=== PATIENT | female | born 1935 | race Caucasian/White ===

== ENCOUNTER 2018-08-04 13:25 | Outpatient (CLI) | payer MEDICARE, OTHER | END 2018-08-04 13:26 | disposition home or self-care (01) | LOC: DI.N 13:25 | DX: Z12.31 Encounter for screening mammogram for malignant neoplasm of breast (principal) | CPT/HCPCS: 77067 ==

== ENCOUNTER 2019-05-29 09:58 | Outpatient (CLI) | payer MEDICARE | END 2019-05-29 09:59 | disposition critical access hospital (66) | LOC: EMS 09:58 | PROVIDERS: ATTEND Surgery | DX: S01.81XA Laceration without foreign body of other part of head, initial encounter (principal); W01.0XXA Fall on same level from slipping, tripping and stumbling without subsequent striking against object, initial encounter; Y93.K1 Activity, walking an animal; Y92.481 Parking lot as the place of occurrence of the external cause | CPT/HCPCS: A0425; A0429 ==

== ENCOUNTER 2019-05-29 10:15 | Emergency (ER) | payer MEDICARE, OTHER ==
[2019-05-29] MEDS ORDERED: TETANUS/DIPHTHERIA/PERTUSSIS 0.5 ML SYRINGE IM ONE (10:53)
--- NOTE | 2019-05-29 11:20 | XRAY Report ---
Reason: fall with wrist injury Procedure Date: 05/29/2019 Accession Number: [id number] / [id number] Procedure: XR - Wrist 3 View LT CPT Code: FULL RESULT: EXAM: LEFT WRIST RADIOGRAPHY EXAM DATE: 05/29/2019 11:06 AM. CLINICAL HISTORY: Fall with wrist injury. COMPARISON: None. TECHNIQUE: 3 views. FINDINGS: Bones: Normal. No fractures or bone lesions. Joints: Mild narrowing of the STT joint. No dislocations or subluxations. Soft Tissues: Normal. No soft tissue swelling. IMPRESSION: No acute fracture appreciated. RADIA
--- NOTE | 2019-05-29 13:13 | CT Report ---
Reason: fall with right periorbital injury; some neck pain Procedure Date: 05/29/2019 Accession Number: [id number] / [id number] Procedure: CT - HEAD WO CPT Code: FULL RESULT: EXAM: CT HEAD EXAM DATE: 05/29/2019 11:23 AM. CLINICAL HISTORY: Fall with right periorbital injury; some neck pain. COMPARISON: CT orbits and cervical spine performed concurrently. TECHNIQUE: Multiaxial CT images were obtained from the foramen magnum to the vertex. Reformats: Sagittal and coronal. IV contrast: None. In accordance with CT protocol optimization, one or more of the following dose reduction techniques were utilized for this exam: automated exposure control, adjustment of mA and/or KV based on patient size, or use of iterative reconstructive technique. FINDINGS: Parenchyma: Minimal patchy hypodensity in bilateral cerebral white matter consistent with chronic small vessel ischemic change. No high density lesions. No mass-effect. Hogue-white differentiation is intact. Extraaxial Spaces: Normal for age. No subdural or epidural collections identified. Ventricles: Normal in size and position. Sinuses and Orbits: Bilateral cataract surgery. Minimal lateral right periorbital soft tissue swelling. Minimal right maxillary sinus mucosal thickening. Otherwise unremarkable. Bones: No evidence of fracture or calvarial defect. Other: None. IMPRESSION: 1. No intracranial hemorrhage or skull fracture. 2. Minimal chronic small vessel ischemic change in the bilateral cerebral white matter. RADIA
--- NOTE | 2019-05-29 13:13 | CT Report ---
Reason: fall with right periorbital injury; some neck pain Procedure Date: 05/29/2019 Accession Number: [id number] / [id number] Procedure: CT - ORBITS WO CPT Code: FULL RESULT: EXAM: CT MAXILLOFACIAL WITHOUT CONTRAST EXAM DATE: 05/29/2019 11:23 AM. CLINICAL HISTORY: Fall with right periorbital injury; some neck pain. COMPARISONS: CT head and cervical spine performed concurrently. TECHNIQUE: Thin-section axial images were acquired of the orbits without contrast. Post-processing: Coronal and sagittal reformats. Other: None. In accordance with CT protocol optimization, one or more of the following dose reduction techniques were utilized for this exam: automated exposure control, adjustment of mA and/or KV based on patient size, or use of iterative reconstructive technique. FINDINGS: Soft Tissue: Mild lateral right periorbital soft tissue swelling. Orbits: Bilateral cataract surgery. Globes symmetric. No retrobulbar hematoma or gas. Bones: No fracture or bone lesion. Right orbital peña and zygomatic arch are intact. Temporomandibular Joints: The temporomandibular joints are symmetric and normally located. Sinuses: Mild mucosal thickening dependently in the right maxillary sinus. Otherwise, the visualized paranasal sinuses are clear as are mastoids and middle ears. Other: None. IMPRESSION: 1. Lateral right periorbital soft tissue swelling. No orbital hematoma or gas. 2. No fracture of visualized facial bones. Right bony orbit is intact. 3. Mild right maxillary sinus mucosal thickening consistent with sinusitis. RADIA
--- NOTE | 2019-05-29 13:18 | CT Report ---
Reason: fall with right periorbital injury; some neck pain Procedure Date: 05/29/2019 Accession Number: [id number] / [id number] Procedure: CT - CERVICAL SPINE WO CPT Code: FULL RESULT: EXAM: CT CERVICAL SPINE WITHOUT CONTRAST DATE: 05/29/2019 11:23 AM. HISTORY: Fall with right periorbital injury; some neck pain. COMPARISONS: None. TECHNIQUE: Thin-section axial images were acquired of the cervical spine without contrast. Post-processing: Coronal and sagittal reformats. Other: None. In accordance with CT protocol optimization, one or more of the following dose reduction techniques were utilized for this exam: automated exposure control, adjustment of mA and/or KV based on patient size, or use of iterative reconstructive technique. FINDINGS: Alignment: No scoliosis or spondylolisthesis. Bones: No fracture or bone lesion. Interspace Levels/Facets: C1-C2: Severe degenerative changes are present. C2-C3: There is mild disk height loss. There are moderate bilateral degenerative facet changes. C3-C4: There is mild disk height loss and endplate osteophyte formation. There are moderate to severe bilateral degenerative facet changes. C4-C5: There is mild disk height loss and endplate osteophyte formation. There are severe bilateral degenerative facet changes. There is mild narrowing of the right neural foramen. C5-C6: There are severe degenerative disk changes. There is mild central canal narrowing. There are mild bilateral degenerative facet changes. There is moderate to severe narrowing of the bilateral neural foramina. C6-C7: There are severe degenerative disk changes. There is mild narrowing of the central canal. There are mild bilateral degenerative facet changes. There is moderate narrowing of the bilateral neuroforamina. C7-T1: There is mild disk loss and endplate osteophyte formation. There are mild degenerative changes of the bilateral neuroforamina. Musculature: Normal. No fatty atrophy. Other: There is atherosclerotic calcification of the bilateral carotid bulbs. The paravertebral and prevertebral soft tissues are otherwise unremarkable. There is minimal peripheral scarring at the right lung apex. IMPRESSION: 1. No fracture or other acute osseous abnormality of the cervical spine identified. 2. Multilevel moderate to severe degenerative changes of the cervical spine. There is mild central canal narrowing at the C5-C6 and C6-C7 levels. There is moderate to severe bilateral neuroforaminal narrowing at the C5-C6 and C6-C7 levels. RADIA
--- NOTE | 2019-05-29 13:25 | ED Physician Documentation ---
PD HPI HEAD INJURY - Stated complaint Stated Complaint: GLF - Chief complaint Chief Complaint: Trauma Hd/Nk - History obtained from History obtained from: Patient - History of Present Illness Mechanism of head injury: Fell (she says she tripped on concrete parking curb and fell forward. Struck right periorbital area with laceration to right lateral eyebrow.) Where head injury occurred: Other ([facility]) Timing - onset: Today Location of injury: Right, Front (periorbital right eyebrow, with some bruising already at eyelid. Lac at lateral eyebrow.) Quality of pain: Throbbing Associated symptoms: No: LOC, AMS, Nausea / vomiting Symptoms worsen with: Palpation Contributing factors: No: Anticoagulated Similar symptoms before: Has not had sx before Recently seen: Not recently seen Review of Systems Constitutional: denies: Fever, Chills Eyes: denies: Loss of vision, Decreased vision, Irritation Nose: denies: Rhinorrhea / runny nose, Congestion Throat: denies: Sore throat Cardiac: denies: Chest pain / pressure, Palpitations Respiratory: denies: Dyspnea, Cough GI: denies: Abdominal Pain, Nausea, Vomiting, Diarrhea Skin: reports: Laceration (s) Musculoskeletal: reports: Extremity pain (left wrist). denies: Neck pain, Back pain Neurologic: denies: Focal weakness, Numbness, Altered mental status, Headache (just hurting right periorbital area) PD PAST MEDICAL HISTORY - Past Medical History Cardiovascular: None Respiratory: None Neuro: None Endocrine/Autoimmune: None - Present Medications Home Medications: Ambulatory Orders Medication Instructions Recorded Confirmed Aspirin 81 mg PO 05/29/19 Garlic 1 each PO 05/29/19 Metoprolol Tartrate 25 mg 05/29/19 Pregabalin [Lyrica] 50 mg PO BID 05/29/19 05/29/19 - Allergies Allergies/Adverse Reactions: Allergies Allergy/AdvReac Type Severity Reaction Status Date / Time cephalexin [From Keflex] Allergy Mild Hives Verified 05/29/19 10:34 Penicillins Allergy Mild Hives Verified 05/29/19 10:34 Opioids - Morphine Analogues AdvReac Mild Nausea Verified 05/29/19 10:35 PD ED PE NORMAL - Vitals Vital signs reviewed: Yes - General General: Alert and oriented X 3, No acute distress - HEENT HEENT: PERRL, EOMI, Other (right lateral eyebrow with 1 cm lac and no FB nor activ e bleeding.) - Neck Neck: Supple, no meningeal sign, No bony TTP - Cardiac Cardiac: RRR, No murmur - Respiratory Respiratory: Clear bilaterally - Abdomen Abdomen: Soft, Non tender, Non distended - Back Back: No CVA TTP, No spinal TTP - Derm Derm: Normal color, Warm and dry - Extremities Extremities: Normal ROM s pain, No edema, Other (left wrist with some tenderness mid dorsal wrist. No noted deformity. Good hair baler and sensation. Just some pain at wrist with it. ) - Neuro Neuro: Alert and oriented X 3, No motor deficit, Normal speech Results - Vitals Vitals: Vital Signs - 24 hr 05/29/19 05/29/19 05/29/19 10:18 10:57 13:28 Temperature 98.3 C H 36.9 C Heart Rate 70 74 76 Respiratory 18 20 18 Rate Blood Pressure 138/69 H 147/66 H 143/64 H O2 Saturation 95 100 99 Oxygen O2 Source Room air - Rads (name of study) left wrist Radiology: Prelim report reviewed (no fractures), See rad report maxiofasc Radiology: Prelim report reviewed (no fractures nor bleeding/swelling.), See rad report Procedures - Laceration (location) right lateral eyebrow Length in cm: 1 Wound type: Linear Neurovascular status: Sensory intact, Motor intact Anesthesia: Lidocaine 1% with epi Wound Preparation: Irrigated copiously NS, Wound explored, To the base. No: FB identified Skin layer closure: Nylon, Running, Size #-0 - enter number (6) Other: Patient tolerated well, No complications, Neurovascular intact, Dressing applied, Tetanus UTD Complexity: Simple Departure - Departure Disposition: 01 Home, Self Care Clinical Impression: Fall from slip, trip, or stumble Qualifiers: Encounter type: initial encounter Qualified Code(s): W01.0XXA - Fall on same level from slipping, tripping and stumbling without subsequent striking against object, initial encounter Laceration of periorbital area Qualifiers: Encounter type: initial encounter Qualified Code(s): S01.81XA - Laceration without foreign body of other part of head, initial encounter Facial contusion Qualifiers: Encounter type: initial encounter Qualified Code(s): S00.83XA - Contusion of other part of head, initial encounter Condition: Stable Record reviewed to determine appropriate education?: Yes Instructions: ED Laceration Facial Sutr Tape Follow-Up: ZO ESCOBAR MD [Provider Admit Priv/Credential] - Comments: Tylenol or ibuprofen if needed for pains. There are no fractures seen on the face head or neck. There is no bleeding noted within the head area. Looks like you are just bruised on the outside with a laceration. It is okay to wash and shower. Clean off the wound twice a day with soap and water, or peroxide and water. Apply some antibiotic ointment to it to keep it moist. Also to watch for signs of infection such as purulence, redness or increasing pain. Return to your primary care or the ER at the specified time for suture removal. Suture removal 7 or 8 days. Discharge Date/Time: 05/29/19 13:36
[2019-05-29 13:30] VITALS: BP 143/64
== END 2019-05-29 13:36 | disposition home or self-care (01) ==
LOC: EDUNIT# → ED 10:15
DX: S01.111A Laceration without foreign body of right eyelid and periocular area, initial encounter (principal); S00.83XA Contusion of other part of head, initial encounter; M25.532 Pain in left wrist; W01.0XXA Fall on same level from slipping, tripping and stumbling without subsequent striking against object, initial encounter; Y93.K1 Activity, walking an animal; Y92.481 Parking lot as the place of occurrence of the external cause; Z23 Encounter for immunization; M50.322 Other cervical disc degeneration at C5-C6 level; M48.02 Spinal stenosis, cervical region
CPT/HCPCS: 12011; 70450; 70480; 72125; 90471

== ENCOUNTER 2019-06-02 13:37 | Outpatient (CLI) | payer MEDICARE ==
--- NOTE | 2019-06-04 00:56 | XRAY Report ---
Reason: RIB PAIN,RIGHT SIDED Procedure Date: 06/02/2019 Accession Number: [id number] / [id number] Procedure: XRN - Ribs w/PA Chest RT CPT Code: FULL RESULT: EXAM: RIGHT RIB RADIOGRAPHY EXAM DATE: 06/02/2019 02:01 PM. CLINICAL HISTORY: RIB PAIN,RIGHT SIDED. COMPARISON: CERVICAL SPINE W/O 05/29/2019 11:16 AM. TECHNIQUE: 1 view of the chest and 2 views of the ribs. FINDINGS: Bones: No acute rib fractures or rib lesions are seen. Demineralized bones. Lungs: No consolidation, pleural effusion or pneumothorax. Right breast shadow blocks visualization. Right apex pleural-based nodular opacification, appeared to be scarring on the prior CT cervical spine but this was not completely imaged. Six-month follow-up chest x-ray could be obtained to confirm stability. Mediastinum: Borderline cardiomegaly. IMPRESSION: Borderline cardiomegaly. No acute rib fractures are seen. Right breast shadow blocks visualization. Right apex pleural-based nodular opacification, appeared to be scarring on the prior CT cervical spine but this was not completely imaged. Six-month follow-up chest x-ray could be obtained to confirm stability. RADIA
== END 2019-06-02 13:38 | disposition home or self-care (01) ==
LOC: DI.N 13:37
PROVIDERS: ATTEND Family Medicine
DX: R07.81 Pleurodynia (principal); I51.7 Cardiomegaly

== ENCOUNTER 2019-06-04 11:26 | Emergency (ER) | payer MEDICARE ==
[2019-06-04 11:40] VITALS: BP 113/47
--- NOTE | 2019-06-04 12:14 | ED Physician Documentation ---
PD HPI WOUND RECHECK - Stated complaint Stated Complaint: SUTURE REMOVAL - Chief complaint Chief Complaint: Wound - Histroy obtained from History obtained from: Patient - History of Present Illness Location: Other (She is here to have her sutures out, as instructed. She has a sutured wound on the right eyebrow. She has not had any issues except for mild itching.) Review of Systems Constitutional: reports: Reviewed and negative Nose: reports: Reviewed and negative Throat: reports: Reviewed and negative PD PAST MEDICAL HISTORY - Past Medical History Cardiovascular: None Respiratory: None Neuro: None Endocrine/Autoimmune: None - Present Medications Home Medications: Ambulatory Orders Medication Instructions Recorded Confirmed Aspirin 81 mg PO 05/29/19 Garlic 1 each PO 05/29/19 Metoprolol Tartrate 25 mg 05/29/19 Pregabalin [Lyrica] 50 mg PO BID 05/29/19 05/29/19 - Allergies Allergies/Adverse Reactions: Allergies Allergy/AdvReac Type Severity Reaction Status Date / Time cephalexin [From Keflex] Allergy Mild Hives Verified 06/04/19 11:37 Penicillins Allergy Mild Hives Verified 06/04/19 11:37 Opioids - Morphine Analogues AdvReac Mild Nausea Verified 06/04/19 11:37 PD ED PE NORMAL - Vitals Vital signs reviewed: Yes - General General: Alert and oriented X 3, No acute distress - HEENT HEENT: PERRL, EOMI, Other (1cm sutured wound R eyebrow, CDI; sutures removed during exam) - Neck Neck: Supple, no meningeal sign, No bony TTP - Neuro Neuro: Alert and oriented X 3, Normal speech Results - Vitals Vitals: Vital Signs - 24 hr 06/04/19 11:37 Temperature 37 C Heart Rate 68 Respiratory 15 Rate Blood Pressure 113/47 L O2 Saturation 100 Oxygen O2 Source Room air Departure - Departure Disposition: 01 Home, Self Care Clinical Impression: Visit for suture removal Condition: Good Discharge Date/Time: 06/04/19 12:13
== END 2019-06-04 12:13 | disposition home or self-care (01) ==
LOC: ED 11:26
DX: S01.111D Laceration without foreign body of right eyelid and periocular area, subsequent encounter (principal); X58.XXXD Exposure to other specified factors, subsequent encounter; Z79.82 Long term (current) use of aspirin
CPT/HCPCS: 99281

== ENCOUNTER 2019-08-25 13:37 | Outpatient (CLI) | payer MEDICARE ==
--- NOTE | 2019-08-30 12:07 | Mammography Report ---
Reason: ROUTINE MAMMO Procedure Date: 08/25/2019 Accession Number: [id number] / [id number] Procedure: MGN - Screening Mammo Dig w/Implants CPT Code: Final Report FULL RESULT: EXAM: Screening Mammo Dig w/Implants DATE: 08/25/2019 2:10 PM CLINICAL HISTORY: The patient is an asymptomatic 83-year-old female. Prior left breast implant removal and benign right breast biopsy. No reported personal nor family history of breast cancer. TECHNIQUE: (B) - Bilateral CC and MLO views were obtained. COMPARISON: 08/04/2018 PARENCHYMAL PATTERN: (D) - The breasts demonstrate heterogeneously dense fibroglandular parenchyma bilaterally. FINDINGS: Post surgical deformity is unchanged in both breasts. Benign dystrophic calcifications again noted. Stable indwelling right subpectoral silicone implant. There are no suspicious masses, calcifications, or areas of distortion. IMPRESSION: Benign findings. BI-RADS category 2. RECOMMENDATION: (ANNUAL) - Recommend routine annual screening mammography. BI-RADS CATEGORY: (2) - Benign Findings. STANDARD QUALIFYING STATEMENTS: A negative or benign imaging report should not preclude biopsy if clinically suspicious findings are present. Dense breasts may obscure an underlying neoplasm.
== END 2019-08-25 13:38 | disposition home or self-care (01) ==
LOC: DI.N 13:37
DX: Z12.31 Encounter for screening mammogram for malignant neoplasm of breast (principal); Z98.82 Breast implant status
CPT/HCPCS: 77067

== ENCOUNTER 2019-09-21 08:00 | Outpatient (CLI) | payer MEDICARE ==
[2019-09-21 12:05] LABS: EOSINOPHILS % (AUTO) 1.2 %; HGB - HEMOGLOBIN 9.9 g/dL (12.0-16.0); LYMPHOCYTES # (AUTO) 0.8 10^3/uL (1.5-3.5); LYMPHOCYTES % (AUTO) 30.5 %; MEAN CORPUSCULAR HEMOGLOBIN 36.5 pg (27.0-31.0); MEAN CORPUSCULAR HGB CONC 32.1 g/dL (32.0-36.0); MEAN CORPUSCULAR VOLUME 113.7 fL (81.0-99.0); MEAN PLATELET VOLUME 11.3 fL (7.9-10.8); MONOCYTES # (AUTO) 0.3 10^3/uL (0.0-1.0); MONOCYTES % (AUTO) 11.6 %; NEUTROPHILS # (AUTO) 1.5 10^3/uL (1.5-6.6); NEUTROPHILS % (AUTO) 56.3 %; PLT - PLATELET COUNT 302 10^3/uL (130-450); RED BLOOD COUNT 2.71 10^6/uL (4.20-5.40); RED CELL DISTRIBUTION WIDTH 11.8 % (12.0-15.0); WHITE BLOOD COUNT 2.6 x10^3/uL (4.8-10.8)
[2019-09-21 12:33] LABS: ALBUMIN 4.5 g/dL (3.2-5.5); ALBUMIN/GLOBULIN RATIO 1.5 (1.0-2.2); ALKALINE PHOSPHATASE 75 IU/L (42-121); ALT ALANINE AMINOTRANSFERASE 17 IU/L (10-60); AST ASPARTATE AMINOTRANSFERASE 23 IU/L (10-42); BILIRUBIN,TOTAL 2.6 mg/dL (0.2-1.0); BUN - BLOOD UREA NITROGEN 19 mg/dL (6-20); CALCIUM 9.2 mg/dL (8.5-10.3); CARBON DIOXIDE - CO2 28 mmol/L (21-32); CHLORIDE 101 mmol/L (101-111); CHOL/HDL RATIO 2.9 (<4.4); CHOLESTEROL 147 mg/dL; CREATININE 0.7 mg/dL (0.4-1.0); GFR - MDRD 80 (>89); GLUCOSE 100 mg/dL (70-100); HDL CHOLESTEROL 51 mg/dL; LDL CHOLESTEROL,CALCULATED 80 mg/dL; LDL/HDL RATIO 1.6 (<4.4); SODIUM 141 mmol/L (135-145); TOTAL PROTEIN 7.5 g/dL (6.7-8.2); VLDL CHOLESTEROL 16 mg/dL
== END 2019-09-21 23:59 | disposition home or self-care (01) ==
LOC: LAB.N 08:00
PROVIDERS: ATTEND Family Medicine
DX: D46.9 Myelodysplastic syndrome, unspecified (principal); I34.1 Nonrheumatic mitral (valve) prolapse
CPT/HCPCS: 36415; 80053; 80061; 83721; 84443; 85025

== ENCOUNTER 2019-10-24 12:54 | Outpatient (CLI) | payer MEDICARE ==
--- NOTE | 2019-10-24 15:20 | XRAY Report ---
Reason: LEFT HIP JOINT PAIN Procedure Date: 10/24/2019 Accession Number: [id number] / [id number] Procedure: XRN - Hip w/Pelvis 2-3V LT CPT Code: Final Report FULL RESULT: EXAM: LEFT HIP RADIOGRAPHY EXAM DATE: 10/24/2019 01:16 PM. CLINICAL HISTORY: LEFT HIP JOINT PAIN. COMPARISON: None. TECHNIQUE: 2 views. FINDINGS: Bones: Normal. No fractures or bone lesion. Joints: Mild left hip joint space narrowing. Mild bilateral hip osteophyte formation. Pubic symphysis and sacroiliac joints are unremarkable. Mild to moderate multilevel lower lumbar degenerative disk disease. Soft Tissues: Normal. No soft tissue swelling. 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 RADIA
== END 2019-10-24 12:55 | disposition home or self-care (01) ==
LOC: DI.N 12:54
PROVIDERS: ATTEND Family Medicine
DX: M16.0 Bilateral primary osteoarthritis of hip (principal)

== ENCOUNTER 2020-06-18 12:53 | Emergency (ER) | payer MEDICARE ==
[2020-06-18] MEDS ORDERED: CHERRY SYRUP 10 ML UDC PO ONE (14:13)
[2020-06-18] MEDS ORDERED: DEXAMETHASONE 10 MG/ML VIAL PO STA (14:13)
[2020-06-18] MEDS ORDERED: KETOROLAC 60 MG/2 ML VIAL IM STA ×2 (14:13→14:33)
--- NOTE | 2020-06-18 14:58 | XRAY Report ---
PROCEDURE: ThoracoLumbar 2 View INDICATIONS: thoracic and upper lumbar pain TECHNIQUE: 5 views acquired of the thoracolumbar spine. COMPARISON: AP pelvis and left hip radiographs 10/24/2019.. FINDINGS: Bones: Prior vertebroplasty at L1 and L3. Levoscoliosis. Bones appear osteopenic. Multilevel degener ative change. No acute fractures identified. No dislocations. Visualized inferior ribs appear intact . No suspicious bony lesions. Bilateral hip DJD partially visualized. Soft tissues: No suspicious soft tissue calcifications. Sutures or staple line posterior lumbar spin e soft tissues. IMPRESSION: No acute fracture identified. Prior vertebroplasty at L1 and L3. Bones appear osteopenic. Reviewed by: Galileo Nicole MD on 06/18/2020 2:57 PM PDT Approved by: Galileo Nicole MD on 06/18/2020 2:57 PM PDT Station ID: [id number]
--- NOTE | 2020-06-18 15:08 | ED Physician Documentation ---
PD HPI BACK PAIN - Stated complaint Stated Complaint: BACK PX - Chief complaint Chief Complaint: Back Pain - History obtained from History obtained from: Patient - History of Present Illness Timing - onset: How many days ago (3) Timing - duration: Days (3) Timing - details: Abrupt onset, Still present Location: Upper Quality: Pain, Spasm, Sharp, Similar to prior episodes Associated symptoms: No: Fever, Weakness, Numbness, Incontinent of urine, Unable to urinate, Hematuria, Incontinent of stool Improves with: Rest, Position Worsened by: Movement Contributing factors: Lifting, Twisting Similar symptoms before: Diagnosis (compression fracture) Recently seen: Not recently seen - Additional information Additional information: 84-year-old female reports that she sat down on her couch and had sudden onset of pain between her shoulder blades bilaterally on the paraspinous muscles. She has had pain in this area now for the past 3 days and it is worsening she has come to the emergency department now for treatment. She has had prior compression fracture and had kyphoplasty done. She does not want to have kyphoplasty done again. She did have good result with it. Review of Systems Constitutional: denies: Fever Eyes: denies: Decreased vision Ears: denies: Ear pain Nose: denies: Congestion Throat: denies: Sore throat Cardiac: denies: Chest pain / pressure, Palpitations Respiratory: denies: Dyspnea, Cough GI: denies: Vomiting PD PAST MEDICAL HISTORY - Past Medical History Past Medical History: No Cardiovascular: None Respiratory: None Neuro: None Endocrine/Autoimmune: None GI: None CELLULAR BIOLOGIST: None : None Psych: None Musculoskeletal: Osteopenia Derm: None - Past Surgical History General: Appendectomy Ortho: Knee replacement /CELLULAR BIOLOGIST: Hysterectomy HEENT: Tonsil/Adenoidectomy - Present Medications Home Medications: Ambulatory Orders Medication Instructions Recorded Confirmed Aspirin 81 mg PO DAILY 05/29/19 05/02/20 Garlic 1 each PO DAILY 05/29/19 05/02/20 Metoprolol Tartrate 25 mg PO DAILY 05/29/19 05/02/20 Pregabalin [Lyrica] 50 mg PO BID 05/29/19 05/02/20 Carisoprodol [Soma] 350 mg PO PRN PRN 05/02/20 05/02/20 Lecithin, Soy [Lecithin] 1,200 mg PO DAILY 05/02/20 05/02/20 Metoprolol Succinate [Toprol Xl] 25 mg PO DAILY 05/02/20 05/02/20 Pregabalin [Lyrica] 50 mg PO BID 05/02/20 05/02/20 Cyclobenzaprine [Flexeril] 10 mg PO TID PRN #20 tablet 06/18/20 Hydrocodone/Acetaminophen 1 - 2 each PO Q6H PRN #14 tablet 06/18/20 [Hydrocodone-Acetamin 5-325 mg] - Allergies Allergies/Adverse Reactions: Allergies Allergy/AdvReac Type Severity Reaction Status Date / Time cephalexin [From Keflex] Allergy Mild Hives Verified 06/18/20 13:15 Penicillins Allergy Mild Hives Verified 06/18/20 13:15 Opioids - Morphine Analogues AdvReac Mild Nausea Verified 06/18/20 13:15 - Social History Does the pt smoke?: No Smoking Status: Never smoker Does the pt drink ETOH?: Yes ETOH Use: Wine Does the pt have substance abuse?: No - Immunizations Immunizations are current?: Yes PD ED PE NORMAL - Vitals Vital signs reviewed: Yes (hypertensive ) - General General: Alert and oriented X 3, No acute distress, Well developed/nourished - HEENT HEENT: Atraumatic, PERRL, EOMI - Neck Neck: Supple, no meningeal sign - Cardiac Cardiac: RRR, No murmur - Respiratory Respiratory: No respiratory distress, Other (diminished breath sounds) - Abdomen Abdomen: Soft, Non tender - Back Back: No CVA TTP, No spinal TTP - Derm Derm: Normal color, Warm and dry, No rash - Extremities Extremities: No deformity, No edema - Neuro Neuro: Alert and oriented X 3, social service coordinator 2-12 intact, No motor deficit, No sensory deficit, Normal speech Eye Opening: Spontaneous Motor: Obeys Commands Verbal: Oriented GCS Score: 15 - Psych Psych: Normal mood, Normal affect Results - Vitals Vitals: Vital Signs - 24 hr 06/18/20 06/18/20 06/18/20 13:12 13:28 15:32 Temperature 36.8 C Heart Rate 75 72 70 Respiratory 16 16 20 Rate Blood Pressure 146/70 H 136/68 H 139/63 H O2 Saturation 97 100 100 Oxygen O2 Source Room air - Rads (name of study) thoracolumbar spine Radiology: Prelim report reviewed (Impression: No acute fracture identified. Prior vertebroplasty at L1 and L3. Bones appear osteopenic), EMP read indepedently (On my read is there are wedge compression fractures of T8 and T10 of indeterminate age.), See rad report PD MEDICAL DECISION MAKING - ED course Complexity details: reviewed old records, reviewed results, re-evaluated patient, considered differential, d/w patient ED course: 84 y/o female with back pain after sitting has 2 compression fractures in the thoracic spine but these do not appear new. She is administered IM toradal and PO decadron in the ED and she has improvement. I did share her pictures and my thoughts about the age of the fractures. She feels this is more likely muscular. Departure - Departure Disposition: 01 Home, Self Care Clinical Impression: Back pain Qualifiers: Back pain location: thoracic back pain Chronicity: acute Back pain laterality: unspecified Qualified Code(s): M54.6 - Pain in thoracic spine Condition: Stable Instructions: ED Fx Comp Vertebral, ED Neck Back Pain General Follow-Up: PENELOPE SANTOS, MSN, CLIENT BUSINESS MANAGER [Primary Care Provider] - Prescriptions: Cyclobenzaprine [Flexeril] 10 mg PO TID PRN #20 tablet PRN Reason: Spasms Hydrocodone/Acetaminophen [Hydrocodone-Acetamin 5-325 mg] 1 - 2 each PO Q6H PRN #14 tablet PRN Reason: Pain Discharge Date/Time: 06/18/20 15:51
[2020-06-18 15:33] VITALS: BP 139/63
== END 2020-06-18 15:51 | disposition home or self-care (01) ==
LOC: ED 12:53
DX: M54.6 Pain in thoracic spine (principal)
CPT/HCPCS: 72080; 96372; 99284; A9270

== ENCOUNTER 2020-06-22 10:51 | Emergency (ER) | payer MEDICARE ==
--- NOTE | 2020-06-22 11:10 | ED Physician Documentation ---
PD HPI BACK PAIN - Stated complaint Stated Complaint: BACK & RIB PAIN - Chief complaint Chief Complaint: Back Pain - History obtained from History obtained from: Patient - History of Present Illness Timing - onset: How many weeks ago (1) Timing - duration: Weeks (1) Timing - details: Abrupt onset, Still present Location: Mid Quality: Pain, Spasm Associated symptoms: No: Fever, Weakness, Numbness Worsened by: Twisting Contributing factors: Twisting (she had onset of mid to lower thoracic back pain when just twisted. Pain persisted and seen in ER several days ago with xray showing concern for T8and T10 compression injuries per EDMD (radiology report negative). Rx Hydrocodone, which she says helped if took 2 per dose. Otherwise still hurting lots) Similar symptoms before: Diagnosis (prior compression fractures lumbar area with kyphoplasty in the past. Not much success with symptoms with the kyphoplasties so would not be interested in that.) Recently seen: Emergency Dept Review of Systems Constitutional: denies: Fever Nose: denies: Rhinorrhea / runny nose, Congestion Throat: denies: Sore throat Cardiac: denies: Chest pain / pressure Respiratory: denies: Dyspnea, Cough GI: denies: Abdominal Pain, Nausea, Vomiting Skin: denies: Rash, Lesions Musculoskeletal: reports: Back pain. denies: Neck pain Neurologic: denies: Focal weakness, Numbness PD PAST MEDICAL HISTORY - Past Medical History Cardiovascular: Other Respiratory: None Neuro: None Endocrine/Autoimmune: None GI: None CHIEF INNOVATION OFFICER: None : None Psych: None Musculoskeletal: Osteopenia Derm: None Other Past Medical History: Mitral valve prolapse - Past Surgical History General: Appendectomy Ortho: Knee replacement /CHIEF INNOVATION OFFICER: Hysterectomy HEENT: Tonsil/Adenoidectomy - Present Medications Home Medications: Ambulatory Orders Medication Instructions Recorded Confirmed Aspirin 81 mg PO DAILY 05/29/19 05/02/20 Garlic 1 each PO DAILY 05/29/19 05/02/20 Metoprolol Tartrate 25 mg PO DAILY 05/29/19 05/02/20 Pregabalin [Lyrica] 50 mg PO BID 05/29/19 05/02/20 Carisoprodol [Soma] 350 mg PO PRN PRN 05/02/20 05/02/20 Lecithin, Soy [Lecithin] 1,200 mg PO DAILY 05/02/20 05/02/20 Metoprolol Succinate [Toprol Xl] 25 mg PO DAILY 05/02/20 05/02/20 Pregabalin [Lyrica] 50 mg PO BID 05/02/20 05/02/20 Cyclobenzaprine [Flexeril] 10 mg PO TID PRN #20 tablet 06/18/20 Hydrocodone/Acetaminophen 1 - 2 each PO Q6H PRN #14 tablet 06/18/20 [Hydrocodone-Acetamin 5-325 mg] Calcitonin [Fortical] 1 sprays ALBER DAILY #1 bottle 06/22/20 Hydrocodone/Acetaminophen [[place] 1 each PO Q6H PRN #25 tablet 06/22/20 7.5-325 Tablet] Naproxen 375 mg PO TID #20 tablet 06/22/20 - Allergies Allergies/Adverse Reactions: Allergies Allergy/AdvReac Type Severity Reaction Status Date / Time cephalexin [From Keflex] Allergy Mild Hives Verified 06/22/20 11:01 Penicillins Allergy Mild Hives Verified 06/22/20 11:01 Opioids - Morphine Analogues AdvReac Mild Nausea Verified 06/22/20 11:01 - Social History Does the pt smoke?: No Smoking Status: Never smoker Does the pt drink ETOH?: Yes Does the pt have substance abuse?: No - Immunizations Immunizations are current?: Yes PD ED PE NORMAL - Vitals Vital signs reviewed: Yes - General General: Alert and oriented X 3, Well developed/nourished, Other (appears in pain) - Neck Neck: Supple, no meningeal sign, No bony TTP, No adenopathy - Cardiac Cardiac: RRR, No murmur - Respiratory Respiratory: Clear bilaterally - Abdomen Abdomen: Soft, Non tender - Back Back: Other (She has tenderness at the mid to lower thoracic spine area. No redness or rash. No skin sensitivity. There is no rib area tenderness laterally though she describes pain laterally) - Derm Derm: Normal color, Warm and dry, No rash - Extremities Extremities: No edema, No calf tenderness / cord - Neuro Neuro: Alert and oriented X 3, No motor deficit, No sensory deficit, Normal speech Results - Vitals Vitals: Vital Signs - 24 hr 06/22/20 06/22/20 11:02 12:50 Temperature 36.6 C 36.8 C Heart Rate 75 86 Respiratory 18 18 Rate Blood Pressure 157/88 H 144/90 H O2 Saturation 99 100 Oxygen O2 Source Room air - Rads (name of study) thoracic CT Radiology: Prelim report reviewed (acute compressive deformities T8 and T10. Subacute/old deformities at other levels. ), See rad report PD MEDICAL DECISION MAKING - ED course Complexity details: reviewed results, re-evaluated patient, considered differential (Improved to reasonable level of pain with IV medications of fentanyl. She has had problems with morphine and hydromorphone in the past. Li erma compression deformities from plain x-ray. We can get CT to confirm and make sure no more significant process.), d/w patient Departure - Departure Disposition: Home, Self Care Clinical Impression: Thoracic compression fracture Qualifiers: Encounter type: initial encounter Thoracic vertebra fracture level: T8 Qualified Code(s): S22.060A - Wedge compression fracture of T7-T8 vertebra, initial encounter for closed fracture Condition: Stable Record reviewed to determine appropriate education?: Yes Instructions: ED Fx Comp Vertebral Follow-Up: PENELOPE SANTOS, MSN, CALCULUS TEACHER [Primary Care Provider] - Prescriptions: Calcitonin [Fortical] 1 sprays ALBER DAILY #1 bottle Naproxen 375 mg PO TID #20 tablet Hydrocodone/Acetaminophen [[place] 7.5-325 Tablet] 1 each PO Q6H PRN #25 tablet PRN Reason: Pain Comments: Use the higher dose hydrocodone every 6 hours as needed for pain. In the short- term add naproxen anti-inflammatory twice daily with food for the next week or so. Calcitonin nasal spray once daily for a month to improve the rate of the bone healing. This should decrease the duration of the fracture is hurting. Follow-up with your primary care later this coming week for reevaluation. Discharge Date/Time: 06/22/20 12:50
[2020-06-22] MEDS ORDERED: KETOROLAC 15 MG/ML VIAL IVP STA (11:11)
[2020-06-22] MEDS ORDERED: diphenhydrAMINE INJ 50 MG/ML VIAL IVP STA (11:11)
[2020-06-22] MEDS ORDERED: fentaNYL 100 MCG/2 ML VIAL IVP STA ×2 (11:11→12:33)
--- NOTE | 2020-06-22 11:58 | CT Report ---
PROCEDURE: THORACIC SPINE WO INDICATIONS: mid/lower thoracic pain onset 4-5 days ago TECHNIQUE: Noncontrast 3 mm thick sections acquired through the region of interest in the thoracic spine. Sagit etta and coronal reformats were then constructed. For radiation dose reduction, the following was used : automated exposure control, adjustment of mA and/or kV according to patient size. COMPARISON: None. FINDINGS: Image quality: Excellent. Bones: Numerous thoracic spine fractures are seen: T4: 30% loss of height centrally, likely subacute T6: 50% loss of height anteriorly, likely subacute to chronic inferiorly T8: 50% loss of height centrally, acute to subacute superiorly, 2-3 mm posterior displacement of frac ture fragments T10: 40-50% loss of height centrally, with acute features superiorly, 2 to 3 mm of posterior displace ment of fracture fragments T12: 40-50% loss of height centrally, chronic appearing L1: 30-40% loss of height anteriorly, chronic, with vertebroplasty cement Degenerative changes are seen throughout, which are worst involving the lower cervical spine. Several bridging of endplate osteophytes can be seen throughout the thoracic spine. Age-appropriate osteopen ia can be seen. There is accentuated thoracic kyphosis. Mild dextroconvex scoliotic curvature is seen. No suspiciou s sclerotic or lytic bony lesions. Central spinal canal is of normal overall caliber. Soft tissues: Within the right upper lobe, there is a spiculated nodule seen, as on series 4 image 6 3 and on series 6 image 32 that measures up to 11 mm. No paravertebral masses or hematomas. Atherosclerotic calcification is seen. IMPRESSION: Several levels of compression deformities are seen. The fractures at the T8 and T10 levels appear acu te or subacute. Please correlate with focal tenderness. The remainder of the fractures appear subacute or chronic. Spiculated nodule within the right upper lobe. The possibility of neoplasm is raised. Given the size, please consider a dedicated CT as the next diagnostic step. Incidental note is made of: L1 vertebroplasty cement Dextroconvex scoliotic curvature Reviewed by: Emory Turk MD on 06/22/2020 10:56 AM [place] Approved by: Emory Turk MD on 06/22/2020 10:56 AM [place] Station ID: [id number]
[2020-06-22 12:50] VITALS: BP 144/90
== END 2020-06-22 12:50 | disposition home or self-care (01) ==
LOC: ED 10:51
DX: S22.060A Wedge compression fracture of T7-T8 vertebra, initial encounter for closed fracture (principal); X50.1XXA Overexertion from prolonged static or awkward postures, initial encounter
CPT/HCPCS: 72128; 96374; 96375; 99284; J1200

== ENCOUNTER 2020-08-10 11:09 | Outpatient (CLI) | payer MEDICARE ==
[2020-08-10 11:38] LABS: EOSINOPHILS % (AUTO) 0.7 %; HGB - HEMOGLOBIN 9.2 g/dL (12.0-16.0); LYMPHOCYTES # (AUTO) 0.8 10^3/uL (1.5-3.5); LYMPHOCYTES % (AUTO) 27.8 %; MEAN CORPUSCULAR HEMOGLOBIN 37.1 pg (27.0-31.0); MEAN CORPUSCULAR HGB CONC 31.6 g/dL (32.0-36.0); MEAN CORPUSCULAR VOLUME 117.3 fL (81.0-99.0); MEAN PLATELET VOLUME 10.3 fL (7.9-10.8); MONOCYTES # (AUTO) 0.3 10^3/uL (0.0-1.0); MONOCYTES % (AUTO) 10.7 %; NEUTROPHILS # (AUTO) 1.7 10^3/uL (1.5-6.6); NEUTROPHILS % (AUTO) 60.8 %; PLT - PLATELET COUNT 280 10^3/uL (130-450); RED BLOOD COUNT 2.48 10^6/uL (4.20-5.40); RED CELL DISTRIBUTION WIDTH 12.2 % (12.0-15.0); WHITE BLOOD COUNT 2.8 x10^3/uL (4.8-10.8)
[2020-08-10 11:43] LABS: CALCIUM 9.1 mg/dL (8.5-10.3); CREATININE 0.6 mg/dL (0.4-1.0)
[2020-08-10 12:14] LABS: DIFFERENTIAL COMMENT Y
[2020-08-10 12:15] LABS: PLATELET ESTIMATE, MANUAL NORMAL (130-450,000) (NORMAL); PLATELET MORPHOLOGY NORMAL APPEARANCE (NORMAL)
== END 2020-08-10 11:10 | disposition home or self-care (01) ==
LOC: RT 11:09
PROVIDERS: ATTEND Orthopaedic Surgery
DX: Z01.818 Encounter for other preprocedural examination (principal)
CPT/HCPCS: 36415; 80048; 85025; 93005

== ENCOUNTER 2020-10-09 10:15 | Outpatient (CLI) | payer MEDICARE, OTHER ==
--- NOTE | 2020-10-10 06:25 | Mammography Report ---
BILATERAL DIGITAL SCREENING MAMMOGRAM WITH AUGMENTATION: 10/09/2020 CLINICAL: Routine screening. Comparison is made to exams dated: 08/25/2019 mammogram and 08/04/2018 mammogram - [facility]. The tissue of both breasts is heterogeneously dense. This may lower the sensitivity of ma mmography. Right breast implant is stable. There are benign post operative findings in the right breast. There also are benign post operative findings and biopsy clip in the left breast. No significant masses, calcifications, or other findings are seen in either breast. There has been no significant interval change. IMPRESSION: BENIGN There is no mammographic evidence of malignancy. A 1 year screening mammogram is recommended. This exam was interpreted at Station ID: [id number]. NOTE: For mammograms, a report in lay terms will be sent to the patient. Approximately 15% of breast malignancies will not be visualized mammographically. In the management of a palpable breast mass, a negative mammogram must not discourage biopsy of a clinically suspicious lesion. Electronically Signed By: Timi hernandez/[email or web address]:10/09/2020 13:29:54 ACR BI-RADS Category 2: Benign Finding(s) 3342F PARENCHYMAL PATTERN: (D) - The breast(s) demonstrate(s) heterogeneously dense fibroglandular parenchy ma. BI-RADS CATEGORY: (2) - 2 RECOMMENDATION: (ANNUAL) - Recommend routine annual screening mammography. [id number] 1 year screening LATERALITY: (B)
== END 2020-10-09 10:16 | disposition home or self-care (01) ==
LOC: DI.N 10:15
DX: Z12.31 Encounter for screening mammogram for malignant neoplasm of breast (principal); Z98.82 Breast implant status

== ENCOUNTER 2021-03-21 15:53 | Emergency (ER) | payer MEDICARE ==
--- NOTE | 2021-03-21 16:38 | XRAY Report ---
PROCEDURE: Chest 1 View X-Ray INDICATIONS: Chest pain TECHNIQUE: One view of the chest was acquired. COMPARISON: 04/02/2019 FINDINGS: Surgical changes and devices: None. Lungs and pleura: There is hyperinflation of the lungs with flattening of hemidiaphragms compatible with COPD. No acute consolidation. No pleural effusions or pneumothorax. Mediastinum: Mediastinal contours appear unchanged. Heart size is normal. Bones and chest wall: No suspicious bony lesions. Multiple compression deformities are demonstrated within the thoracic and lumbar spine with bone cement at multiple levels. Overlying soft tissues terri ear unremarkable. IMPRESSION: 1. No definite acute cardiopulmonary disease. 2. Findings compatible with COPD redemonstrated. Reviewed by: Jose Agustin MD on 03/21/2021 4:36 PM PDT Approved by: Jose Agustin MD on 03/21/2021 4:36 PM PDT Station ID: [id number]
[2021-03-21 16:39] LABS: EOSINOPHILS % (AUTO) 0.6 %; HCT - HEMATOCRIT 23.7 % (37.0-47.0); HGB - HEMOGLOBIN 7.8 g/dL (12.0-16.0); LYMPHOCYTES % (AUTO) 28.4 %; MEAN CORPUSCULAR HEMOGLOBIN 37.9 pg (27.0-31.0); MEAN CORPUSCULAR HGB CONC 32.9 g/dL (32.0-36.0); MEAN PLATELET VOLUME 9.9 fL (7.9-10.8); MONOCYTES # (AUTO) 0.3 10^3/uL (0.0-1.0); MONOCYTES % (AUTO) 7.9 %; NEUTROPHILS # (AUTO) 2.1 10^3/uL (1.5-6.6); NEUTROPHILS % (AUTO) 62.8 %; PLT - PLATELET COUNT 217 10^3/uL (130-450); RED BLOOD COUNT 2.06 10^6/uL (4.20-5.40); RED CELL DISTRIBUTION WIDTH 11.6 % (12.0-15.0); WHITE BLOOD COUNT 3.4 x10^3/uL (4.8-10.8)
[2021-03-21 16:44] LABS: SLIDE REVIEW? Indicated
[2021-03-21 16:54] LABS: ALBUMIN 4.2 g/dL (3.2-5.5); ALBUMIN/GLOBULIN RATIO 1.4 (1.0-2.2); CALCIUM 9.2 mg/dL (8.5-10.3); CREATININE 0.6 mg/dL (0.4-1.0); TOTAL PROTEIN 7.1 g/dL (6.7-8.2)
[2021-03-21 17:00] LABS: PLATELET ESTIMATE, MANUAL NORMAL (130-450,000) (NORMAL); PLATELET MORPHOLOGY NORMAL APPEARANCE (NORMAL); RBC MORPHOLOGY (MULTIPLE) 1+ MACROCYTOSIS (NORMAL); WBC MORPHOLOGY (MULTIPLE) NORMAL APPEARANCE (NORMAL)
[2021-03-21 17:19] VITALS: BP 148/72
--- NOTE | 2021-03-21 17:19 | ED Physician Documentation ---
History of Present Illness - Stated complaint Stated Complaint: HIGH HEART RATE/HBP - Chief complaint Chief Complaint: Cardiac - History obtained from History obtained from: Patient - History of Present Illness Timing: How many days ago (3) Pain level max: 0 Pain level now: 0 - Additonal information Additional information: Patient is an 85-year-old female who presents to the emergency department palpitations for the past 3 days. She states that this has been occurring since she was switched from metoprolol to losartan. She is requesting to go back on her metoprolol. No chest pain. No shortness of breath. She called her filling technician who recommended she come here for evaluation. Patient also has a history of myelodysplastic syndrome with chronic anemia. 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: None : None Psych: None Musculoskeletal: Osteopenia Derm: None - Past Surgical History General: Appendectomy Ortho: Knee replacement /SOLDERING MACHINE OPERATOR HELPER: Hysterectomy HEENT: Tonsil/Adenoidectomy - Present Medications Home Medications: Ambulatory Orders Medication Instructions Recorded Confirmed Aspirin 81 mg PO DAILY 05/29/19 01/15/21 Garlic 1 each PO DAILY 05/29/19 01/15/21 Metoprolol Tartrate 25 mg PO DAILY 05/29/19 01/15/21 Pregabalin [Lyrica] 50 mg PO BID 05/29/19 01/15/21 Carisoprodol [Soma] 350 mg PO PRN PRN 05/02/20 01/15/21 Lecithin, Soy [Lecithin] 1,200 mg PO DAILY 05/02/20 01/15/21 Metoprolol Succinate [Toprol Xl] 25 mg PO DAILY 05/02/20 01/15/21 Pregabalin [Lyrica] 50 mg PO BID 05/02/20 01/15/21 Cyclobenzaprine [Flexeril] 10 mg PO TID PRN #20 tablet 06/18/20 01/15/21 Hydrocodone/Acetaminophen 1 - 2 each PO Q6H PRN #14 tablet 06/18/20 01/15/21 [Hydrocodone-Acetamin 5-325 mg] Calcitonin [Fortical] 1 sprays ALBER DAILY #1 bottle 06/22/20 01/15/21 Hydrocodone/Acetaminophen [[place] 1 each PO Q6H PRN #25 tablet 06/22/20 01/15/21 7.5-325 Tablet] Naproxen 375 mg PO TID #20 tablet 06/22/20 01/15/21 Metoprolol Succinate [Toprol Xl] 25 mg PO DAILY #30 tablet 03/21/21 - Allergies Allergies/Adverse Reactions: Allergies Allergy/AdvReac Type Severity Reaction Status Date / Time cephalexin [From Keflex] Allergy Mild Hives Verified 03/21/21 16:16 Penicillins Allergy Mild Hives Verified 03/21/21 16:16 Opioids - Morphine Analogues AdvReac Mild Nausea Verified 03/21/21 16:16 - Social History Does the pt smoke?: No Smoking Status: Never smoker Does the pt drink ETOH?: Yes Does the pt have substance abuse?: No - Immunizations Immunizations are current?: Yes PD ED PE NORMAL - Vitals Vital signs reviewed: Yes - General General: Alert and oriented X 3, No acute distress, Well developed/nourished - HEENT HEENT: PERRL, Moist mucous membranes - Neck Neck: Supple, no meningeal sign - Cardiac Cardiac: RRR, Strong equal pulses - Respiratory Respiratory: No respiratory distress, Clear bilaterally - Derm Derm: Warm and dry - Extremities Extremities: No edema, No calf tenderness / cord - Neuro Neuro: Alert and oriented X 3 - Psych Psych: Normal mood, Normal affect Results - Vitals Vitals: Vital Signs - 24 hr 03/21/21 03/21/21 16:09 17:18 Temperature 36.9 C Heart Rate 89 84 Respiratory 16 20 Rate Blood Pressure 126/109 H 148/72 H O2 Saturation 96 99 Oxygen O2 Source Room air - EKG (time done) 1559 Rate: Rate (enter#) (89) Rhythm: NSR [place]: Normal Intervals: Normal [place] QRS: Normal Ischemia: Normal ST segments, Q waves (III, aVF, V1-4) - Labs Labs: Laboratory Tests 03/21/21 03/21/21 03/21/21 16:33 16:33 16:33 WBC 3.4 L RBC 2.06 L Hgb 7.8 L Hct 23.7 L MCV 115.0 H MCH 37.9 H MCHC 32.9 RDW 11.6 L Plt Count 217 MPV 9.9 Neut # (Auto) 2.1 Lymph # (Auto) 1.0 L [place] # (Auto) 0.3 Eos # (Auto) 0.0 Baso # (Auto) 0.0 Absolute Nucleated RBC 0.00 Nucleated RBC % 0.0 Manual Slide Review Indicated WBC Morphology NORMAL APPEARANCE Platelet Estimate NORMAL (130-450,000) Platelet Morphology NORMAL APPEARANCE RBC Morph Micro Appear 1+ MACROCYTOSIS Sodium 138 Potassium 4.0 Chloride 102 Carbon Dioxide 27 Anion Gap 9.0 BUN 22 H Creatinine 0.6 Estimated GFR (MDRD) 95 Glucose 104 H Calcium 9.2 Total Bilirubin 2.0 H AST 22 ALT 16 Alkaline Phosphatase 71 Troponin I High Sens 4.2 Total Protein 7.1 Albumin 4.2 Globulin 2.9 Albumin/Globulin Ratio 1.4 Lipase 55 H - Rads (name of study) cxr Radiology: Final report received, EMP read contemporaneously, See rad report (No definite acute cardiopulmonary disease. Findings compatible with COPD.) PD MEDICAL DECISION MAKING - ED course Complexity details: reviewed results, re-evaluated patient, considered differential, d/w patient ED course: Patient with palpitations after stopping the metoprolol and switching to losartan. We will change her back to metoprolol to see if this improves her symptoms. Has myelodysplastic syndrome with chronic anemia. Not symptomatic. She will follow up with her doctor for further care. Patient counseled regarding signs and symptoms for which I believe and urgent re-evaluation would be necessary. Patient with good understanding of and agreement to plan and is comfortable going home at this time This document was made in part using voice recognition software. While efforts are made to proofread this document, sound alike and grammatical errors may occur. Departure - Departure Disposition: 01 Home, Self Care Clinical Impression: Palpitations Condition: Good Instructions: ED Palpitations Follow-Up: Dany Bull MD [Primary Care Provider] - NADER MOON MD [Provider Admit Priv/Credential] - Prescriptions: Metoprolol Succinate [Toprol Xl] 25 mg PO DAILY #30 tablet Comments: Your new prescription was sent to [facility] in [place]. Please pick this up, stop the losartan and start the Toprol-XL again. Return if you worsen Your hemoglobin is also down to 7.8, but you are asymptomatic with this. Please follow-up with Dr. Moon for further care. Discharge Date/Time: 03/21/21 17:45
== END 2021-03-21 17:45 | disposition home or self-care (01) ==
LOC: ED 15:53
DX: R00.2 Palpitations (principal); D46.9 Myelodysplastic syndrome, unspecified; D46.4 Refractory anemia, unspecified; D63.8 Anemia in other chronic diseases classified elsewhere; Z79.82 Long term (current) use of aspirin
CPT/HCPCS: 36415; 80053; 83690; 84484; 85025; 93005; 99284

== ENCOUNTER 2021-08-26 12:57 | Outpatient (CLI) | payer MEDICARE | END 2021-08-26 12:58 | disposition critical access hospital (66) | LOC: EMS 12:57 | DX: S01.111A Laceration without foreign body of right eyelid and periocular area, initial encounter (principal); R51.9 Headache, unspecified; W18.30XA Fall on same level, unspecified, initial encounter; Y92.512 Supermarket, store or market as the place of occurrence of the external cause | CPT/HCPCS: A0425; A0429 ==

== ENCOUNTER 2021-08-26 13:13 | Emergency (ER) | payer MEDICARE ==
[2021-08-26] MEDS ORDERED: BUFFERED LIDOCAINE 10 ML SYRINGE SUBQ STA (13:36)
--- NOTE | 2021-08-26 13:38 | ED Physician Documentation ---
History of Present Illness - Stated complaint Stated Complaint: FALL - Chief complaint Chief Complaint: Laceration - Additonal information Additional information: 85-year-old female presents to the emergency department for evaluation of head ache, some neck pain as well as a laceration above her right eyebrow. She was chasing a bag in a parking lot tripped falling forward striking her head on the pavement. There was no loss of consciousness. She is not anticoagulated. Past medical history most significant for hypertension for which she takes metoprolol. No vomiting. Otherwise appears neurologically intact. Review of Systems Constitutional: denies: Chills Eyes: reports: Reviewed and negative Ears: reports: Reviewed and negative Throat: reports: Reviewed and negative Cardiac: reports: Chest pain / pressure Respiratory: reports: Reviewed and negative GI: denies: Nausea, Vomiting Skin: reports: Laceration (s) Musculoskeletal: reports: Neck pain Neurologic: reports: Headache, Head injury. denies: Focal weakness, Difficulty speaking, Syncope, Seizure, Confused PD PAST MEDICAL HISTORY - Past Medical History Cardiovascular: Other Respiratory: None Neuro: None Endocrine/Autoimmune: None GI: None SENIOR SUPPORT ENGINEER: None : None Psych: None Musculoskeletal: Osteopenia Derm: None - Past Surgical History General: Appendectomy Ortho: Knee replacement /SENIOR SUPPORT ENGINEER: Hysterectomy HEENT: Tonsil/Adenoidectomy - Present Medications Home Medications: Ambulatory Orders Medication Instructions Recorded Confirmed Aspirin 81 mg PO DAILY 05/29/19 04/16/21 Garlic 1 each PO DAILY 05/29/19 04/16/21 Metoprolol Tartrate 25 mg PO DAILY 05/29/19 04/16/21 Pregabalin [Lyrica] 50 mg PO BID 05/29/19 04/16/21 Carisoprodol [Soma] 350 mg PO PRN PRN 05/02/20 04/16/21 Lecithin, Soy [Lecithin] 1,200 mg PO DAILY 05/02/20 04/16/21 Metoprolol Succinate [Toprol Xl] 25 mg PO DAILY 05/02/20 04/16/21 Pregabalin [Lyrica] 50 mg PO BID 05/02/20 04/16/21 Cyclobenzaprine [Flexeril] 10 mg PO TID PRN #20 tablet 06/18/20 04/16/21 Hydrocodone/Acetaminophen 1 - 2 each PO Q6H PRN #14 tablet 10/27/20 08/25/21 [Hydrocodone-Acetamin 5-325 mg] Calcitonin [Fortical] 1 sprays ALBER DAILY #1 bottle 06/22/20 04/16/21 Hydrocodone/Acetaminophen [[place] 1 each PO Q6H PRN #25 tablet 06/22/20 04/16/21 7.5-325 Tablet] Naproxen 375 mg PO TID #20 tablet 06/22/20 04/16/21 Metoprolol Succinate [Toprol Xl] 25 mg PO DAILY #30 tablet 03/21/21 04/16/21 - Allergies Allergies/Adverse Reactions: Allergies Allergy/AdvReac Type Severity Reaction Status Date / Time cephalexin [From Keflex] Allergy Mild Hives Verified 08/26/21 13:20 Penicillins Allergy Mild Hives Verified 08/26/21 13:20 Opioids - Morphine Analogues AdvReac Mild Nausea Verified 08/26/21 13:20 - Social History Does the pt smoke?: No Smoking Status: Never smoker Does the pt drink ETOH?: Yes Does the pt have substance abuse?: No - Immunizations Immunizations are current?: Yes PD ED PE NORMAL - General General: Alert and oriented X 3, No acute distress - HEENT HEENT: PERRL, Ears normal, Moist mucous membranes. No: Atraumatic (3 cm laceration through the right eyebrow) - Neck Neck: No bony TTP, Other (Mild tenderness with axial loading. Full range of motion of the neck.) - Cardiac Cardiac: RRR, No murmur - Respiratory Respiratory: No respiratory distress, Clear bilaterally - Back Back: No CVA TTP, No spinal TTP - Derm Derm: Normal color, Warm and dry, No rash - Extremities Extremities: No deformity - Neuro Neuro: Alert and oriented X 3, deburr operator 2-12 intact, No motor deficit, No sensory deficit, Normal speech Eye Opening: Spontaneous Motor: Obeys Commands Verbal: Oriented GCS Score: 15 - Psych Psych: Normal mood Results - Vitals Vitals: Vital Signs - 24 hr 08/26/21 13:18 Temperature 36.1 C L Heart Rate 78 Respiratory 14 Rate Blood Pressure 124/68 O2 Saturation 98 Oxygen O2 Source Room air - Rads (name of study) CT head/ cervical spine Radiology: Prelim report reviewed, Final report received Procedures - Laceration (location) right eyebrow Length in cm: 4 Wound type: Linear, Into subcut fat Neurovascular status: Sensory intact, Motor intact Anesthesia: Lidocaine 1% Wound preparation: Chlorhexadine, Irrigated copiously NS Skin layer closure: Interrupted, Size #-0 - enter number (4), Sutures - enter # (6) Other: Patient tolerated well, No complications, Neurovascular intact, Tetanus UTD PD MEDICAL DECISION MAKING - ED course Complexity details: reviewed results, re-evaluated patient, considered differential, d/w patient ED course: This is a well-appearing 85-year-old female the presents the emergency department after ground-level fall this afternoon in a parking lot in which she was chasing a bag of bent over and hit her face on the cement. There was no loss of consciousness but she had a rather large 4 cm laceration through her right eyebrow. This was closed at the bedside. We did perform a CT of her head and neck that did not show any acute findings. She is remained free of pain here in the emergency department with a normal neurological exam. Routine wound care and emergent return precautions were otherwise discussed. Departure - Departure Disposition: 01 Home, Self Care Clinical Impression: Fall from ground level Laceration of eyebrow, right Qualifiers: Encounter type: initial encounter Qualified Code(s): S01.111A - Laceration without foreign body of right eyelid and periocular area, initial encounter Condition: Stable Record reviewed to determine appropriate education?: Yes Comments: Chikis Mahmood it was a pleasure to care for you today. You did sustain a laceration of your right eyebrow. We did closed with 6 sutures. You can shower normally. I do recommend you place a thin layer of antibiotic ointment over the laceration. Suture should be removed in about 7 days. There are [address] of your head and neck did not show any acute bruising or bleeding. 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 I do recommend that you take Tylenol or ibuprofen [id number] for any discomfort. I expect that you are going to be generally sore over the next few days. However if you develop any sudden severe headache, have slurred speech focal weakness in your arms or legs or facial droop then please return immediately to the ER for a second evaluation
[2021-08-26] MEDS ORDERED: BACITRACIN ZINC OINT 1 PACKET TOP STA (14:23)
--- NOTE | 2021-08-26 15:00 | CT Report ---
PROCEDURE: CT brain without contrast INDICATIONS: GLF; headache; right eyebrow laceration TECHNIQUE: Noncontrast 4.5 mm thick angled axial sections acquired from the foramen magnum to the vertex. For r adiation dose reduction, the following was used: automated exposure control, adjustment of mA and/or kV according to patient size. COMPARISON: None. FINDINGS: Image quality: Excellent. CSF spaces: Basal cisterns are patent. No extra-axial fluid collections. Ventricles are normal in size and shape. Brain: No midline shift. No intracranial masses or hemorrhage. [place]-white matter interface is norm al. Moderate atrophy and multifocal white matter chronic ischemic change noted. Atherosclerotic vasc ular calcification noted in the cavernous segments of both internal carotid arteries as well as the i ntradural vertebral arteries. Skull and face: Calvarium and visualized facial bones are intact, without suspicious lesions. Sinuses: Visualized sinuses and mastoids are clear. Bilateral intraocular lens replacements noted. IMPRESSION: Atrophy and chronic ischemic change without acute hemorrhage or mass effect Reviewed by: Nikolas Leal MD on 08/26/2021 1:58 PM [place] Approved by: Nikolas Leal MD on 08/26/2021 1:58 PM AKST Station ID: [id number]
--- NOTE | 2021-08-26 15:04 | CT Report ---
PROCEDURE: CERVICAL SPINE WO INDICATIONS: neck pain after fall TECHNIQUE: Noncontrast 3 mm thick sections acquired from the skull base to the T4 level. Sagittal and coronal r eformats were then constructed. For radiation dose reduction, the following was used: automated exp osure control, adjustment of mA and/or kV according to patient size. COMPARISON: None. FINDINGS: Image quality: Excellent. Bones: No fractures or dislocations. Visualized superior ribs are intact. Hypertrophic right C1-2 joint with subchondral cysts and effaces the right lateral recess. Disc space narrowing and posterior osteophyte at C5-6 and C6-7 results in moderate to severe central stenosis with cord indentation Soft tissues: Prevertebral soft tissues are normal in thickness. No paravertebral hematomas. No ap ical pneumothoraces. IMPRESSION: 1. No evidence of fracture or traumatic malalignment 2. 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 Reviewed by: Nikolas Leal MD on 08/26/2021 2:02 PM AKST Approved by: Nikolas Leal MD on 08/26/2021 2:02 PM AKST Station ID: [id number]
[2021-08-26 15:26] VITALS: BP 122/70
== END 2021-08-26 15:26 | disposition home or self-care (01) ==
LOC: EDUNIT# → ED 13:13
DX: S01.111A Laceration without foreign body of right eyelid and periocular area, initial encounter (principal); W01.0XXA Fall on same level from slipping, tripping and stumbling without subsequent striking against object, initial encounter; Y93.89 Activity, other specified; Y92.481 Parking lot as the place of occurrence of the external cause
CPT/HCPCS: 12013; 99282; 99284

== ENCOUNTER 2021-09-02 13:41 | Emergency (ER) | payer MEDICARE ==
[2021-09-02 13:50] VITALS: BP 141/40
--- NOTE | 2021-09-02 14:16 | ED Physician Documentation ---
History of Present Illness - Stated complaint Stated Complaint: STICHES REMOVAL R EYEBR - Chief complaint Chief Complaint: General - Additonal information Additional information: 85-year-old female presents emergency department for suture removal from a right eyebrow laceration placed by myself 1 week ago after a ground-level fall. She feels that the wound has been healing well. No headaches or vomiting. She does have some residual ecchymosis under her right eye. At the time that I initially saw her a CT of her head and neck was completed which were without any advantageous findings. Tetanus is up-to-date. Review of Systems Constitutional: denies: Fever, Myalgias Ears: reports: Reviewed and negative Nose: denies: Rhinorrhea / runny nose Throat: denies: Dental pain / toothache Cardiac: reports: Reviewed and negative Respiratory: reports: Reviewed and negative GI: reports: Reviewed and negative Skin: reports: Laceration (s) PD PAST MEDICAL HISTORY - Past Medical History Cardiovascular: Other Respiratory: None Neuro: None Endocrine/Autoimmune: None GI: None COOK ICE CREAM: None : None Psych: None Musculoskeletal: Osteopenia Derm: None - Past Surgical History General: Appendectomy Ortho: Knee replacement /COOK ICE CREAM: Hysterectomy HEENT: Tonsil/Adenoidectomy - Present Medications Home Medications: Ambulatory Orders Medication Instructions Recorded Confirmed Aspirin 81 mg PO DAILY 05/29/19 08/29/21 Garlic 1 each PO DAILY 05/29/19 08/29/21 Metoprolol Tartrate 25 mg PO DAILY 05/29/19 08/29/21 Pregabalin [Lyrica] 50 mg PO BID 05/29/19 08/29/21 Carisoprodol [Soma] 350 mg PO PRN PRN 05/02/20 08/29/21 Lecithin, Soy [Lecithin] 1,200 mg PO DAILY 05/02/20 08/29/21 Metoprolol Succinate [Toprol Xl] 25 mg PO DAILY 05/02/20 08/29/21 Pregabalin [Lyrica] 50 mg PO BID 05/02/20 08/29/21 Cyclobenzaprine [Flexeril] 10 mg PO TID PRN #20 tablet 06/18/20 08/29/21 Hydrocodone/Acetaminophen 1 - 2 each PO Q6H PRN #14 tablet 06/18/20 08/29/21 [Hydrocodone-Acetamin 5-325 mg] Calcitonin [Fortical] 1 sprays ALBER DAILY #1 bottle 06/22/20 08/29/21 Hydrocodone/Acetaminophen [[place] 1 each PO Q6H PRN #25 tablet 06/22/20 08/29/21 7.5-325 Tablet] Naproxen 375 mg PO TID #20 tablet 06/22/20 08/29/21 Metoprolol Succinate [Toprol Xl] 25 mg PO DAILY #30 tablet 03/21/21 08/29/21 - Allergies Allergies/Adverse Reactions: Allergies Allergy/AdvReac Type Severity Reaction Status Date / Time cephalexin [From Keflex] Allergy Mild Hives Verified 09/02/21 13:50 Penicillins Allergy Mild Hives Verified 09/02/21 13:50 Opioids - Morphine Analogues AdvReac Mild Nausea Verified 09/02/21 13:50 - Social History Does the pt smoke?: No Smoking Status: Never smoker Does the pt drink ETOH?: Yes Does the pt have substance abuse?: No - Immunizations Immunizations are current?: Yes - POLST Patient has POLST: No PD ED PE EXPANDED - HEENT HEENT: Other (3 cm laceration through the right eyebrow. 6 sutures were removed at the bedside. Middle portion of the wound appears to want to open. No surrounding erythema or drainage. Benzoin as well as Steri-Strips placed across the wound to continue to approximate it.) - Neuro Neuro: Alert and Oriented X 3, CNII-XII intact, Cerebellar nl, Normal gait, Normal finger nose, Normal speech - GCS Eye Opening: Spontaneous Motor: Obeys Commands Verbal: Oriented Total: 15 Results - Vitals Vitals: Vital Signs - 24 hr 09/02/21 13:48 Temperature 35.9 C L Heart Rate 72 Respiratory 16 Rate Blood Pressure 141/40 H O2 Saturation 96 Oxygen O2 Source Room air PD MEDICAL DECISION MAKING - ED course Complexity details: reviewed results, re-evaluated patient, d/w patient ED course: Well-appearing 85-year-old female here for stitch removal from her right eyebrow laceration placed 1 week ago after ground-level fall. 6 sutures were removed intact. Unfortunately the middle portion of the wound wants to open up. No surrounding erythema drainage or other findings to suggest infection. Benzoin and Steri-Strips were placed across the wound. Emergent return precautions were discussed for concerns of infection. Departure - Departure Disposition: 01 Home, Self Care Clinical Impression: Visit for suture removal Condition: Stable Record reviewed to determine appropriate education?: Yes Comments: Chiksi Mahmood it was a pleasure to see you again today. We did remove the 6 sutures from your eyebrow laceration. Unfortunately looks like it wants to open up a little bit. Therefore we did place some benzoin as well as Steri-Strips across the wound. I am encouraging you to let the Steri- Strips stay in place for about the next week. It may take a little longer than initially anticipated for this laceration to heal. If at any point you have fevers, redness milky drainage or concerns of infection then please return immediately to the ER for a second look.
== END 2021-09-02 14:21 | disposition home or self-care (01) ==
LOC: ED 13:41
DX: S01.111D Laceration without foreign body of right eyelid and periocular area, subsequent encounter (principal)
CPT/HCPCS: 99281; 99282

== ENCOUNTER 2021-09-15 08:00 | Outpatient (CLI) | payer MEDICARE ==
[2021-09-15 18:06] LABS: HCT - HEMATOCRIT 26.3 % (37.0-47.0); HGB - HEMOGLOBIN 8.4 g/dL (12.0-16.0); LYMPHOCYTES # (AUTO) 0.6 10^3/uL (1.5-3.5); LYMPHOCYTES % (AUTO) 21.3 %; MEAN CORPUSCULAR HEMOGLOBIN 37.8 pg (27.0-31.0); MEAN CORPUSCULAR HGB CONC 31.9 g/dL (32.0-36.0); MEAN CORPUSCULAR VOLUME 118.5 fL (81.0-99.0); MEAN PLATELET VOLUME 11.8 fL (7.9-10.8); MONOCYTES # (AUTO) 0.4 10^3/uL (0.0-1.0); MONOCYTES % (AUTO) 12.7 %; NEUTROPHILS # (AUTO) 1.9 10^3/uL (1.5-6.6); NEUTROPHILS % (AUTO) 64.7 %; PLT - PLATELET COUNT 249 10^3/uL (130-450); RED BLOOD COUNT 2.22 10^6/uL (4.20-5.40); RED CELL DISTRIBUTION WIDTH 11.7 % (12.0-15.0)
[2021-09-15 18:10] LABS: SLIDE REVIEW? Indicated
[2021-09-15 19:22] LABS: ALBUMIN 4.4 g/dL (3.2-5.5); ALBUMIN/GLOBULIN RATIO 1.4 (1.0-2.2); BILIRUBIN,TOTAL 1.9 mg/dL (0.2-1.0); CALCIUM 9.3 mg/dL (8.5-10.3); CREATININE 0.7 mg/dL (0.4-1.0); POTASSIUM 4.1 mmol/L (3.5-5.0); TOTAL PROTEIN 7.5 g/dL (6.7-8.2)
[2021-09-15 19:37] LABS: PLATELET ESTIMATE, MANUAL NORMAL (130-450,000) (NORMAL); PLATELET MORPHOLOGY NORMAL APPEARANCE (NORMAL); RBC MORPHOLOGY (MULTIPLE) 2+ MACROCYTOSIS (NORMAL)
== END 2021-09-15 23:59 | disposition home or self-care (01) ==
LOC: LAB.WCP 08:00
PROVIDERS: ATTEND Physician Assistant
DX: D46.9 Myelodysplastic syndrome, unspecified (principal)
CPT/HCPCS: 36415; 80053; 82728; 83540; 84466; 85025

== ENCOUNTER 2021-11-03 14:45 | Outpatient (CLI) | payer MEDICARE ==
--- NOTE | 2021-11-04 08:36 | Mammography Report ---
BILATERAL DIGITAL SCREENING MAMMOGRAM WITH AUGMENTATION: 11/03/2021 CLINICAL: Routine screening. Comparison is made to exams dated: 10/09/2020 mammogram, 08/25/2019 mammogram, and 08/04/2018 mammogram - [facility]. There are scattered fibroglandular elements in both breasts. Right breast implant is stable. There are benign post operative findings in the right breast. There also are benign post operative findings and biopsy clip in the left breast. No significant masses, calcifications, or other findings are seen in either breast. There has been no significant interval change. IMPRESSION: BENIGN There is no mammographic evidence of malignancy. A 1 year screening mammogram is recommended. This exam was interpreted at Station ID: [id number]. NOTE: For mammograms, a report in lay terms will be sent to the patient. Approximately 15% of breast malignancies will not be visualized mammographically. In the management of a palpable breast mass, a negative mammogram must not discourage biopsy of a clinically suspicious lesion. Electronically Signed By: Isabel [email or web address]:11/03/2021 15:35:03 ACR BI-RADS Category 2: Benign Finding(s) 3342F PARENCHYMAL PATTERN: (A) - The breast(s) demonstrate(s) scattered fibroglandular densities. BI-RADS CATEGORY: (2) - 2 RECOMMENDATION: (ANNUAL) - Recommend routine annual screening mammography. [id number] 1 year screening LATERALITY: (B)
== END 2021-11-03 14:46 | disposition home or self-care (01) ==
LOC: DI.N 14:45
DX: Z12.31 Encounter for screening mammogram for malignant neoplasm of breast (principal)